=== PATIENT | male | born 1950 | race Caucasian/White ===

== ENCOUNTER 2017-07-11 11:34 | Observation (INO) ==
[2017-07-11] MEDS ORDERED: 0.9 % Sodium Chloride 1,000 ML IVC ONE (11:37)
--- NOTE | 2017-07-11 11:37 | Emergency Department Note ---
Disposition Clinical Impression: Dizziness Disposition: Admitted As Inpatient Condition: Good General Adult HPI - General Chief complaint: ED Dizziness Stated complaint: diziness Time Seen by Provider: 07/11/17 11:35 - Related Data Home Medications Medication Instructions Recorded Confirmed Atorvastatin Calcium [Lipitor] 20 mg PO QPM 07/11/17 07/11/17 Losartan [Cozaar] 25 mg PO DAILY 07/11/17 07/11/17 Metoprolol [Lopressor] 25 mg PO BID 07/11/17 07/11/17 Allergies Allergy/AdvReac Type Severity Reaction Status Date / Time No Known Allergies Allergy Verified 07/11/17 11:57 Course Vital Signs Temperature 98.4 F 07/11/17 11:36 Pulse Rate 69 07/11/17 11:36 Respiratory Rate 18 07/11/17 11:36 Blood Pressure 178/95 07/11/17 11:36 O2 Sat by Pulse Oximetry 98 07/11/17 11:36 Temperature 98.6 F 07/12/17 07:01 Pulse Rate 73 07/12/17 07:01 Respiratory Rate 16 07/12/17 07:01 Blood Pressure 150/81 07/12/17 07:01 O2 Sat by Pulse Oximetry 97 07/12/17 07:01 Oxygen Delivery Oxygen Delivery Room Air Medical Decision Making - Lab Data Result diagrams: 07/12/17 00:52 07/12/17 00:52 Lab Results 07/11/17 07/11/17 07/11/17 Range/Units 11:39 11:41 11:41 WBC 4.5 (4.3-11.1) K/mcL RBC 5.13 (4.19-5.50) M/mcL Hgb 15.3 (12.9-16.9) g/dL Hct 46.2 (37.5-50.1) % MCV 90.1 (83.0-100.0) fL MCH 29.8 (28.0-33.3) pg MCHC 33.1 (31.6-35.5) g/dL RDW 12.6 (11.5-14.5) % Plt Count 129 L (140-400) K/mcL MPV 10.9 (9.4-12.4) fL Immature Gran % 0.4 (0-4) % Seg Neutrophils % 52.5 % Lymphocytes % 35.4 % Monocytes % 7.0 % Eosinophils % 3.8 % Basophils % 0.9 % Neutrophils # 2.3 (1.6-8.9) K/mcL Lymphocytes # 1.6 (0.6-4.6) K/mcL Monocytes # 0.3 (0.0-1.3) K/mcL Eosinophils # 0.2 (0.0-0.6) K/mcL Basophils # 0.0 (0.0-0.2) K/mcL Sodium 140 (136-145) mEq/L Potassium 3.8 (3.5-4.5) mEq/L Chloride 106 (98-109) mEq/L Carbon Dioxide 27 (19-29) mEq/L BUN 13 (8-26) mg/dL Creatinine 1.02 (0.72-1.25) mg/dL Est GFR ( Amer) > 60 (> 60) Est GFR (Non-Af Amer) > 60 (> 60) BUN/Creatinine Ratio 13 (6-26) Glucose 128 H (70-99) mg/dL POC Glucose 122 H (58-89) Calculated Osmolality 292 (280-300) Calcium 9.2 (8.6-10.8) mg/dL Troponin I (0-0.03) ng/mL 07/11/17 Range/Units 11:41 WBC (4.3-11.1) K/mcL RBC (4.19-5.50) M/mcL Hgb (12.9-16.9) g/dL Hct (37.5-50.1) % MCV (83.0-100.0) fL MCH (28.0-33.3) pg MCHC (31.6-35.5) g/dL RDW (11.5-14.5) % Plt Count (140-400) K/mcL MPV (9.4-12.4) fL Immature Gran % (0-4) % Seg Neutrophils % % Lymphocytes % % Monocytes % % Eosinophils % % Basophils % % Neutrophils # (1.6-8.9) K/mcL Lymphocytes # (0.6-4.6) K/mcL Monocytes # (0.0-1.3) K/mcL Eosinophils # (0.0-0.6) K/mcL Basophils # (0.0-0.2) K/mcL Sodium (136-145) mEq/L Potassium (3.5-4.5) mEq/L Chloride (98-109) mEq/L Carbon Dioxide (19-29) mEq/L BUN (8-26) mg/dL Creatinine (0.72-1.25) mg/dL Est GFR ( Amer) (> 60) Est GFR (Non-Af Amer) (> 60) BUN/Creatinine Ratio (6-26) Glucose (70-99) mg/dL POC Glucose (58-89) Calculated Osmolality (280-300) Calcium (8.6-10.8) mg/dL Troponin I 0.00 (0-0.03) ng/mL Attestation Statement - Attestation Attestation: I examined this patient and my medical decision-making was reviewed with the Resident Physician. I agree with the documented findings, disposition and treatment plan as described except to the extent set forth below. [id number] time provided Patient arrives by EMS. He was reported to be pale, diaphoretic, clammy. He is clammy at the time of arrival but otherwise appears in no acute apparent distress. I evaluated patient upon arrival in conjunction with the resident physician Dr. Villela
--- NOTE | 2017-07-11 11:42 | Emergency Department Note ---
Disposition Clinical Impression: Dizziness Disposition: Admitted As Inpatient Condition: Good Dizziness HPI - General Chief Complaint: ED Dizziness Stated Complaint: diziness Time Seen by Provider: 07/11/17 11:35 Source: patient, EMS Mode of arrival: EMS Limitations: no limitations Nursing Notes Reviewed: Yes Vital Signs Reviewed: Yes - History of Present Illness HPI Narrative: Patient presents to the ED with the chief complaint of dizziness. Patient is presenting to the ED via EMS and was seen and evaluated immediately upon arrival. EMS reports that approximately one hour prior to arrival. The patient went out for a walk. On his walk he started to feel very dizzy and lightheaded and generally weak to the point where he actually had to crawl back home to call the squad. Upon arrival reportedly, the patient was pale, diaphoretic, clammy and dizzy. On arrival to the emergency department, the patient is in no acute distress, but does complain of feeling very dizzy and lightheaded. States he has a history of vertigo previously, but this feels different. He has also been nauseated with a few episodes of nonbloody, nonbilious vomiting. There is no chest pain, discomfort, heaviness, shortness of breath, fever, headache, changes in vision, abdominal pain, pain or swelling in his legs. He has no history of CVA. He does have history of coronary artery disease and one stent in 2007. He also takes medication for hypertension and hyperlipidemia. - Related Data Home Medications Medication Instructions Recorded Confirmed Atorvastatin Calcium [Lipitor] 20 mg PO QPM 07/11/17 07/11/17 Losartan [Cozaar] 25 mg PO DAILY 07/11/17 07/11/17 Metoprolol [Lopressor] 25 mg PO BID 07/11/17 07/11/17 Allergies Allergy/AdvReac Type Severity Reaction Status Date / Time No Known Allergies Allergy Verified 07/11/17 11:57 All systems ED: reviewed and negative except as stated. Constitutional: Reports: weakness (Generalized). Denies: fever Eyes: Denies: vision change Cardiovascular: Denies: chest pain Respiratory: Denies: dyspnea Gastrointestinal: Reports: nausea, vomiting. Denies: abdominal pain Musculoskeletal: Denies: back pain, neck pain Neurological: Reports: weakness, vertigo. Denies: headache Endocrine: Reports: fatigue Past Medical History - Past Medical History Attestation: Yes The following information was validated with the patient. Source: patient Physical Exam - General Limitations: no limitations General appearance: alert, in no apparent distress - Head Head exam: atraumatic, normocephalic, normal inspection - Eye Eye exam: Present: normal appearance, PERRL, EOMI - ENT ENT exam: normal exam, normal oropharynx, mucous membranes moist - Neck Neck exam: Present: normal inspection, full ROM, trachea midline - Chest Chest inspection: Present: normal inspection, symmetric chest wall rise - Respiratory Respiratory exam: Present: normal lung sounds bilaterally - Cardiovascular Cardiovascular exam: Present: regular rate, normal rhythm, normal heart sounds - Abdominal Exam Abdominal exam: Present: soft, Non-Tender. Absent: tenderness, distention, guarding, rebound, rigidity - Extremities Exam Extremities exam: Present: normal inspection, full ROM, normal capillary refill. Absent: tenderness, pedal edema - Expanded Lower Extremity Exam Hip/Pelvis exam: Present: pelvis stable - Neurological Exam Neurological exam: Present: alert, oriented X3, CN II-XII intact - Expanded Neurological Exam Patient oriented to: Present: person, place, time Speech: Present: fluid speech Cranial nerves: EOM function (II, III, IV, ): Normal, facial sensation (V): Normal, facial palsy (VII): Normal, spinal accessory function (XI): Normal, tongue deviation (XII): Normal Cerebellar function: finger to nose: Normal Motor strength - LUE: 5/5 Motor strength - RUE: 5/5 Motor strength - LLE: 5/5 Motor strength - RLE: 5/5 Upper motor neuron exam: kelley neglect: Absent bilaterally, pronator drift: Absent bilaterally Sensory exam upper extremity: light touch: Normal Sensory exam lower extremity: light touch: Normal Coma Scale Eye Opening: Spontaneous Coma Scale Motor Response: Obeys Commands Coma Scale Verbal Response: Oriented Coma Scale Total: 15 - Psychiatric Psychiatric exam: Present: normal affect, normal mood - Skin Skin exam: Present: warm, dry, intact, normal color Course Course Narrative: Patient presenting to the ED with dizziness. No chest pain or shortness of breath. Does have some ST segment changes in II, III, and F aVF. However, no STEMI. We will repeat his EKG and one hour. We will also CT his head. Patient will be admitted for further workup. Vital Signs Temperature 98.4 F 07/11/17 11:36 Pulse Rate 69 07/11/17 11:36 Respiratory Rate 18 07/11/17 11:36 Blood Pressure 178/95 07/11/17 11:36 O2 Sat by Pulse Oximetry 98 07/11/17 11:36 Temperature 97.9 F 07/11/17 14:04 Pulse Rate 69 07/11/17 16:11 Respiratory Rate 16 07/11/17 14:04 Blood Pressure 137/75 07/11/17 16:11 O2 Sat by Pulse Oximetry 95 07/11/17 14:04 Oxygen Delivery Oxygen Delivery Room Air Dizziness - Medical Records Medical records reviewed: Yes I reviewed the patient's medical records. - Lab Data Lab results reviewed: Yes I reviewed the patient's lab results. Result diagrams: 07/11/17 11:41 07/11/17 11:41 Lab Results 07/11/17 07/11/17 07/11/17 Range/Units 11:39 11:41 11:41 WBC 4.5 (4.3-11.1) K/mcL RBC 5.13 (4.19-5.50) M/mcL Hgb 15.3 (12.9-16.9) g/dL Hct 46.2 (37.5-50.1) % MCV 90.1 (83.0-100.0) fL MCH 29.8 (28.0-33.3) pg MCHC 33.1 (31.6-35.5) g/dL RDW 12.6 (11.5-14.5) % Plt Count 129 L (140-400) K/mcL MPV 10.9 (9.4-12.4) fL Immature Gran % 0.4 (0-4) % Seg Neutrophils % 52.5 % Lymphocytes % 35.4 % Monocytes % 7.0 % Eosinophils % 3.8 % Basophils % 0.9 % Neutrophils # 2.3 (1.6-8.9) K/mcL Lymphocytes # 1.6 (0.6-4.6) K/mcL Monocytes # 0.3 (0.0-1.3) K/mcL Eosinophils # 0.2 (0.0-0.6) K/mcL Basophils # 0.0 (0.0-0.2) K/mcL Sodium 140 (136-145) mEq/L Potassium 3.8 (3.5-4.5) mEq/L Chloride 106 (98-109) mEq/L Carbon Dioxide 27 (19-29) mEq/L BUN 13 (8-26) mg/dL Creatinine 1.02 (0.72-1.25) mg/dL Est GFR ( Amer) > 60 (> 60) Est GFR (Non-Af Amer) > 60 (> 60) BUN/Creatinine Ratio 13 (6-26) Glucose 128 H (70-99) mg/dL POC Glucose 122 H (58-89) Calculated Osmolality 292 (280-300) Calcium 9.2 (8.6-10.8) mg/dL Troponin I (0-0.03) ng/mL 07/11/17 Range/Units 11:41 WBC (4.3-11.1) K/mcL RBC (4.19-5.50) M/mcL Hgb (12.9-16.9) g/dL Hct (37.5-50.1) % MCV (83.0-100.0) fL MCH (28.0-33.3) pg MCHC (31.6-35.5) g/dL RDW (11.5-14.5) % Plt Count (140-400) K/mcL MPV (9.4-12.4) fL Immature Gran % (0-4) % Seg Neutrophils % % Lymphocytes % % Monocytes % % Eosinophils % % Basophils % % Neutrophils # (1.6-8.9) K/mcL Lymphocytes # (0.6-4.6) K/mcL Monocytes # (0.0-1.3) K/mcL Eosinophils # (0.0-0.6) K/mcL Basophils # (0.0-0.2) K/mcL Sodium (136-145) mEq/L Potassium (3.5-4.5) mEq/L Chloride (98-109) mEq/L Carbon Dioxide (19-29) mEq/L BUN (8-26) mg/dL Creatinine (0.72-1.25) mg/dL Est GFR ( Amer) (> 60) Est GFR (Non-Af Amer) (> 60) BUN/Creatinine Ratio (6-26) Glucose (70-99) mg/dL POC Glucose (58-89) Calculated Osmolality (280-300) Calcium (8.6-10.8) mg/dL Troponin I 0.00 (0-0.03) ng/mL - Radiology Data Radiology results reviewed: Yes I reviewed the patient's radiology results. - EKG Data EKG attestation: Yes I reviewed and interpreted this EKG. EKG results narrative: 11:37 AM Sinus rhythm, rate 66, UT interval 175, QRS 94, QTC 443, normal axis, patient does have some ST segment changes in leads 2, 3 and aVF. However, there is no elevation. We will recheck an EKG and one hour.
[2017-07-11 11:47] LABS: Basophils % 0.9 %; Eosinophils # 0.2 K/mcL (0.0-0.6); Eosinophils % 3.8 %; Hematocrit 46.2 % (37.5-50.1); Hemoglobin 15.3 g/dL (12.9-16.9); Immature Granulocytes % 0.4 % (0-4); Lymphocytes # 1.6 K/mcL (0.6-4.6); Lymphocytes % 35.4 %; Mean Corpuscular HGB Conc 33.1 g/dL (31.6-35.5); Mean Corpuscular Hemoglobin 29.8 pg (28.0-33.3); Mean Corpuscular Volume 90.1 fL (83.0-100.0); Mean Platelet Volume 10.9 fL (9.4-12.4); Monocytes # 0.3 K/mcL (0.0-1.3); Neutrophils # 2.3 K/mcL (1.6-8.9); Platelet Count 129 K/mcL (140-400); Red Blood Count 5.13 M/mcL (4.19-5.50); Red Cell Distribution Width 12.6 % (11.5-14.5); Segmented Neutrophils % 52.5 %
[2017-07-11 11:59] LABS: BUN/Creatinine Ratio 13 (6-26); Blood Urea Nitrogen 13 mg/dL (8-26); Calcium 9.2 mg/dL (8.6-10.8); Carbon Dioxide 27 mEq/L (19-29); Chloride 106 mEq/L (98-109); Glucose 128 mg/dL (70-99); Osmolality,Calculated 292 (280-300); Potassium 3.8 mEq/L (3.5-4.5); Sodium 140 mEq/L (136-145); eGFR For African Americans > 60 (> 60); eGFR For Non-African Americans > 60 (> 60)
[2017-07-11 13:54] LABS: Bilirubin,Urine Negative (Negative); Blood,Urine Negative (Negative); Clarity,Urine Clear (Clear); Color,Urine Yellow (Yellow); Glucose,Urine (UA) Normal (Normal); Ketones,Urine Negative (Negative); Leukocyte Esterase,Urine Negative (Negative); Nitrite,Urine Negative (Negative); Protein,Urine Negative (Neg-Trace); Specific Gravity,Urine 1.023 (1.010-1.025); Urobilinogen,Urine Normal (Normal)
--- NOTE | 2017-07-11 13:58 | Internal Med History&Physical ---
<Brando Aponte - Last Filed: 07/11/17 15:02> Date of Encounter: 07/11/17 Time of Encounter: 13:55 Assessment and Plan (1) Dizziness Current visit: Yes Status: Acute CT head negative for any acute abnormality. patient states she does have history of vertigo which has resolved on its own. EKG did not show any significant signs of ischemia first troponin negative CXR showed cardiomegaly with no acute process. Plan: lipid panel in am bilateral carotid duplex echocardiogram orthostatic vitals brain MRI- rule out cerebellar stroke. trend troponins repeat EKG tomorrow morning fall precautions telemetry if work up negative will likely need to be discharged with holter monitor and follow up with PCP. (2) Hypertension Current visit: Yes Status: Acute continue home meds. Qualifiers: Hypertension type: essential hypertension Qualified Code(s): I10 - Essential (primary) hypertension (3) Coronary artery disease Current visit: Yes Status: Acute patent had stent placed in 2007 and states he was on dual antiplatelet therapy afterwards with aspirin and plavix. Plan: continue ASA, statin, BB Qualifiers: Coronary Disease-Associated Artery/Lesion type: [place] artery [place] vs. transplanted heart: [place] heart Associated angina: without angina Qualified Code(s): I25.10 - Atherosclerotic heart disease of [place] coronary artery without angina pectoris (4) Hyperlipidemia Current visit: Yes Status: Acute will check lipid panel with am labs. continue home statin Qualifiers: Hyperlipidemia type: unspecified Qualified Code(s): E78.5 - Hyperlipidemia , unspecified (5) DVT prophylaxis Current visit: Yes Status: Acute heparin SQ Internal Medicine - H&P: HPI Chief complaint: dizziness Admitted From: Emergency Dept Plans for Post Hospital Care: Home History of present illness: Mr. Jones is a 66 year old male with PMHx of HTN, HLD, CAD presented to the ED via EMS with chief complaint of dizziness that started approximately one hour prior to arrival. Patient states that he was outside going for a walk earlier today when he started feeling extremely dizzy. he states that he felt as if his head was spinning. Patient states his head started to "wobble" from side to side. His dizziness lasted several hours and he states that it was still present after arriving to the ED but was less severe. He states he was pale and diaphoretic when this happened as well. He was clammy, sweaty, and nauseous with one episode of vomiting. he did not have any episodes of syncope. he denies headache, fever, chills, palpitations, chest pain. he admits to mild shortness of breath. he denies hematuria/hematochezia. he states this episode of dizziness happened 2-3 days ago the last time it happened. patient does have a history of vertigo that he was diagnosed with in 2016. he had a work up including Brain MRI at that time, which his states was negative. patient denies history of arrhythmias. he does have hx of CAD with stent placed in 2007 for which he was on dual antiplatelet therapy afterwards with aspirin and plavix. he is not a current smoker, drinks socially on weekends. he denies history of alcoholism or illicit drug use. Past Med Surg Social Fam HX - Past Medical History Medical history: hyperlipidemia, hypertension Psychiatric history: no psych history - Social History Smoking Status: Never smoker Smokeless Tobacco Status: No Alcohol use: occasionally Drug use: none - Family History Father Living Status: Hx Family Cardiac Disorders: Yes Internal Medicine - H&P: Meds Atorvastatin Calcium [Lipitor] 20 mg PO QPM 07/11/17 [History] Losartan [Cozaar] 25 mg PO DAILY 07/11/17 [History] Metoprolol [Lopressor] 25 mg PO BID 07/11/17 [History] 3 Allergy/AdvReac Type Severity Reaction Status Date / Time No Known Allergies Allergy Verified 07/11/17 11:57 All Systems PM: A 10-system review of systems was performed and is negative for pertinent findings except as documented above in the HPI. - Constitutional Constitutional: as per HPI - EENT Eyes: as per HPI Ears: as per HPI Nose, mouth and throat: as per HPI - Breasts Breasts: as per HPI - Cardiovascular Cardiovascular ROS IM: as per HPI - Respiratory Respiratory: as per HPI - Gastrointestinal Gastrointestinal: as per HPI - Genitourinary Genitourinary ROS male: as per HPI - Musculoskeletal Musculoskeletal ROS IM: as per HPI - Integumentary Integumentary IM: as per HPI - Neurological Neurological ROS: as per HPI - Psychiatric Psychiatric: as per HPI - Endocrine Endocrine IM: as per HPI - Hematologic/Lymphatic Hematologic/Lymphatic: as per HPI - Allergic/Immunologic Allergic/Immunologic: as per HPI - Constitutional Vitals: Temp Pulse Resp BP Pulse Ox 98.4 F 64 18 160/83 97 07/11/17 11:36 07/11/17 12:09 07/11/17 13:45 07/11/17 13:45 07/11/17 12:09 General appearance: Present: A&O X 3, pleasant, no acute distress, answers questions appropriately - Head Head exam: Present: atraumatic, normocephalic - Eye Eye exam: Present: PERRL Pupils: Present: normal accommodation, PERRL - ENT ENT exam: Present: mucous membranes moist - Neck Neck exam general surgery: Present: supple, trachea midline - Respiratory Respiratory exam: Present: CTAB - Cardiovascular Cardiovascular exam: Present: RRR, +S1, +S2. Absent: gallop, rubs, systolic murmur - GI/Abdominal GI/Abdominal exam: Present: normal bowel sounds, soft. Absent: distended, tenderness Additional comments: obese abdomen. - Extremities Exam Extremities exam: Absent: cyanotic, pedal edema - Neurological Exam Neurological exam: Present: alert, CN II-XII intact, oriented X3, no focal deficits, strengths equal and symetr throughout. Absent: pronater drift, facial droop, speech deficit Additional comments: patient was slow to walk but did not have any falls while walking. - Psychiatric Psychiatric exam: Present: normal affect, normal mood - Skin Skin exam: Present: intact. Absent: cyanosis, rash, urticaria Internal Med - H&P Results - Labs CBC & Chem 7: 07/11/17 11:41 07/11/17 11:41 <Robert Gasca - Last Filed: 07/11/17 16:20> Date of Encounter: 07/11/17 Internal Medicine - H&P: HPI History of present illness: Mr. Jones is a 66 year old male All Systems PM: A 10-system review of systems was performed and is negative for pertinent findings except as documented above in the HPI. - Constitutional Vitals: Temp Pulse Resp BP Pulse Ox 97.9 F 57 16 167/97 95 07/11/17 14:04 07/11/17 14:04 07/11/17 14:04 07/11/17 14:04 07/11/17 14:04 Internal Med - H&P Results - Labs CBC & Chem 7: 07/11/17 11:41 07/11/17 11:41 Labs: Urine 07/11/17 Range/Units 13:43 Urine Color Yellow (Yellow) Urine Clarity Clear (Clear) Urine pH 6.0 (5.0-8.0) pH Units Ur Specific [place] 1.023 (1.010-1.025) Urine Protein Negative (Neg-Trace) mg/dL Urine Glucose (UA) Normal (Normal) mg/dL - Attending Attestation I have independently seen and examined this patient on 07/11/17 and discussed plan of care with the patient and the resident 66 M with hx of VErtigo, HTN, HLD, CAD s/p stent in 2007 who had exertional dizziness associated with nausea and vomiting, shortness of breath and diaphoresis. He did not have chest pain. He continues to have dizziness during the time of evaluation Physical exam: VSS. Not in distress. Speaks full sentences. No facial assymetry. gait is normal without ataxia. Cerebellar signs are unremarkable, however, patient has past pointing, he has no nystagmus. His motor strength and sensation is normal. he has no carotid bruits. Chest is CTAB. Heart sounds S1, S 2only, no murmurs, no gallops, no rubs, Abdomen is soft and benigng. No pedal edema labs and Imaging reviewed: Head CT unremarkable, CXR with cardiomegaly, EKG with flat T waves in lead II. CBC and chem WNL A/P :Dizziness: R/O Anginal equivalent, r/o CVA. Obtain full work up. ECHO/Brain MRI /carotid USS. Give ASA, continue patient's home meds Uncontrolled HTN: Possibly chronic. Resume home meds, titrate prn Rest of details as in resident physician's documentation
[2017-07-11] MEDS ORDERED: Naloxone 0.4 MG/ML INJ IVP PRN (14:56)
[2017-07-11] MEDS ORDERED: Ondansetron 4 MG/2 ML VIAL IVP PRN (14:56)
[2017-07-11] MEDS ORDERED: Acetaminophen 325 MG TABLET PO PRN (14:56)
[2017-07-11] MEDS: Aspirin 81 MG TAB.CHEW PO SCH (15:32)
--- NOTE | 2017-07-11 19:11 | Electrocardiograph Report ---
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
[2017-07-12 01:36] LABS: Hematocrit 42.1 % (37.5-50.1); Hemoglobin 14.1 g/dL (12.9-16.9); Immature Platelets 7.3 % (1.1-6.1); Mean Corpuscular HGB Conc 33.5 g/dL (31.6-35.5); Mean Corpuscular Volume 89.6 fL (83.0-100.0); Mean Platelet Volume 11.5 fL (9.4-12.4); Red Blood Count 4.7 M/mcL (4.19-5.50); Red Cell Distribution Width 12.6 % (11.5-14.5)
[2017-07-12 01:52] LABS: Chol/HDL Ratio 3.7 (0-4.9)
[2017-07-12 01:53] LABS: BUN/Creatinine Ratio 13 (6-26); Blood Urea Nitrogen 12 mg/dL (8-26); Calcium 8.8 mg/dL (8.6-10.8); Carbon Dioxide 23 mEq/L (19-29); Chloride 109 mEq/L (98-109); Glucose 112 mg/dL (70-99); Osmolality,Calculated 291 (280-300); Potassium 3.8 mEq/L (3.5-4.5); Sodium 140 mEq/L (136-145); eGFR For African Americans > 60 (> 60); eGFR For Non-African Americans > 60 (> 60)
[2017-07-12 07:05] VITALS: BP 150/81
--- NOTE | 2017-07-12 07:20 | Carotid Imaging Report ---
Carotid Duplex Patient Name:Thang Jones Order Number:[id number] Procedure Date:07/11/2017 Date:1950ge:66 yrs Gender:Male Lt BP:160 / 83 mmHg Rt.BP:167 / 97 mmHgHeart Rate: Location:[facility] Room #: [facility] Supervisor:Belkis Sarabia RDCS Referring MD:DO Carlos Fairbanks MD:Anuj Pedraza MD Primary Indications:dizziness Risk Factors Yes/No Hypertension Yes Hypercholesterolemia Yes Impressions: The bilateral carotid arteries are normal throughout. Recommendations: After imaging the patient returned to their room. Findings Carotid Duplex: Magdaleno scale imaging combined with Doppler flow analysis suggests normal findings bilaterally. Right: The right proximal common carotid artery has a PSV of 105 cm/s and a EDV of 17 cm/s. The right mid common carotid artery has a PSV of 97 cm/s and a EDV of 16 cm/s. The right distal common carotid artery has a PSV of 90 cm/s and a EDV of 18 cm/s. The right bifurcation has a PSV of 80 cm/s and a EDV of 17 cm/s. The right proximal internal carotid artery has a PSV of 63 cm/s and a EDV of 15 cm/s. The right mid internal carotid artery has a PSV of 72 cm/s and a EDV of 22 cm/s. The right distal internal carotid artery has a PSV of 76 cm/s and a EDV of 19 cm/s. The right eca has a PSV of 110 cm/s and a EDV of 12 cm/s. The right vertebral artery has a PSV of 41 cm/s and a EDV of 11 cm/s. Left: The left proximal common carotid artery has a PSV of 123 cm/s and a EDV of 20 cm/s. The left mid common carotid artery has a PSV of 99 cm/s and a EDV of 15 cm/s. The left distal common carotid artery has a PSV of 103 cm/s and a EDV of 17 cm/s. The left bifurcation has a PSV of 89 cm/s and a EDV of 20 cm/s. The left proximal internal carotid artery has a PSV of 76 cm/s and a EDV of 20 cm/s. The left mid internal carotid artery has a PSV of 63 cm/s and a EDV of 19 cm/s. The left distal internal carotid artery has a PSV of 66 cm/s and a EDV of 21 cm/s. The left eca has a PSV of 97 cm/s and a EDV of 13 cm/s. The left vertebral artery has a PSV of 39 cm/s and a EDV of 9 cm/s. Prior Study: No prior study available for comparison. Carotid Results Right PSV EDV Assessment Proximal CCA 105 17 Normal Mid CCA 97 16 Normal Distal CCA 90 18 Normal Bifurcation 80 17 Normal Proximal ICA 63 15 Normal Mid ICA 72 22 Normal Distal ICA 76 19 Normal ECA 110 12 Normal Vertebral Artery 41 11 Normal Left PSV EDV Assessment Proximal CCA 123 20 Normal Mid CCA 99 15 Normal Distal CCA 103 17 Normal Bifurcation 89 20 Normal Proximal ICA 76 20 Normal Mid ICA 63 19 Normal Distal ICA 66 21 Normal ECA 97 13 Normal Vertebral Artery 39 9 Normal Ratio's Right ICA/CCA Ratio: 0.78 ICA/CCA Values: 76/97 Left ICA/CCA Ratio: 0.77 ICA/CCA Values: 76/99 Updated by Anuj Pedraza MD on 07/12/2017 7:12:32 AM electronically signed on 07/12/2017 7:12:51 AM with status of Final
[2017-07-12] MEDS: Aspirin 81 MG TAB.CHEW PO SCH (09:30)
--- NOTE | 2017-07-12 10:08 | Discharge Summary ---
<Fariha Rider - Last Filed: 07/12/17 10:02> Date of Encounter: 07/12/17 Time of Encounter: 10:03 - Discharge Medications Prescriptions: Meclizine [Antivert] 25 mg PO BID PRN 7 Days #14 tablet PRN Reason: Dizziness Home Medications: Atorvastatin Calcium [Lipitor] 20 mg PO QPM 07/11/17 [History] Losartan [Cozaar] 25 mg PO DAILY 07/11/17 [History] Metoprolol [Lopressor] 25 mg PO BID 07/11/17 [History] Meclizine [Antivert] 25 mg PO BID PRN 7 Days #14 tablet 07/12/17 [Rx] Allergies/Adverse Reactions: 3 Allergy/AdvReac Type Severity Reaction Status Date / Time No Known Allergies Allergy Verified 07/11/17 11:57 Procedures/tests Complete & Pending: Procedures Performed prior 72 hours Category Date Time Status MR head/brain wo con [MR] Routine MRI 07/11/17 14:53 Completed EKG [ECG 12 lead ECG] [ECG] Routine Y 07/12/17 08:00 Completed EV carotid duplex imaging BI Routine Y 07/11/17 14:52 Completed EV echocardiogram Routine Y 07/11/17 14:51 Completed Date of admission: 07/11/17 13:39 Primary care physician: [facility] Discharging clinician: Robert Gasca - Patient Status Disposition: Home, Self-Care Condition: Good Functional capacity at discharge: independent ambulation Overall status at discharge: patient is back to baseline - Discharge Instructions Instructions: Meclizine (By mouth), Coronary Artery Disease (DC), Heart Healthy Diet (DC), Syncope (DC), Chronic Hypertension (DC) Follow [facility]: [facility] [Primary Care Provider] - 07/19/17 11:15 am Additional Instructions: Continue to wear event monitor for 2 weeks and follow up with your PCP Take meclizine as needed for dizziness return to the hospital if you should worsen, pass out, chest pain, shortness of breath - Diet and Activity Activity: resume usual activities as tolerated Diet: regular diet Hospital course: Mr. Jones is a 66 year old male - Time Spent with Patient Total time spent providing and/or coordinating discharge services: - Constitutional Vitals: Temp Pulse Resp BP Pulse Ox 98.6 F 73 16 150/81 97 07/12/17 07:01 07/12/17 07:01 07/12/17 07:01 07/12/17 07:01 07/12/17 07:01 General appearance: Present: A&O X 3, pleasant, no acute distress, answers questions appropriately <Robert Gasca T - Last Filed: 07/12/17 13:59> Date of Encounter: 07/12/17 Procedures/tests Complete & Pending: Procedures Performed prior 72 hours Category Date Time Status MR head/brain wo con [MR] Routine MRI 07/11/17 14:53 Completed ECG 12 lead ECG [ECG] Routine Y 07/11/17 16:00 Completed ECG event monitor 2 weeks [ECG] Routine Y 07/12/17 10:26 Completed EKG [ECG 12 lead ECG] [ECG] Routine Y 07/12/17 08:00 Completed EV carotid duplex imaging BI Routine Y 07/11/17 14:52 Completed EV echocardiogram Routine Y 07/11/17 14:51 Completed Date of admission: 07/11/17 13:39 Primary care physician: PCP [facility] Hospital course: Mr. Jones is a 66 year old male - Time Spent with Patient Total time spent providing and/or coordinating discharge services: - Constitutional Vitals: Temp Pulse Resp BP Pulse Ox 98.6 F 73 16 150/81 97 07/12/17 07:01 07/12/17 07:01 07/12/17 07:01 07/12/17 07:01 07/12/17 07:01 - Attending Attestation I have independently seen and examined this patient on 07/12/17 and discussed plan of care with the patient and the resident 66 M with hx of Vertigo, HTN, HLD, CAD s/p stent in 2007 who was admitted to observation on 07/11 following an episode of dizziness associated with nasuea/ vomiting/diaphoresis Work up including ECHO/Carotid doppler/brain MRI has been unremarkable He has no events on tele He is seen this morning and denies any more episodes of Vertigo, but chronically has tinnitus Physical exam: VSS. Not in distress. Speaks full sentences. No facial asymmetry. gait is normal without ataxia. Cerebellar signs are unremarkable, however, patient has past pointing, he has no nystagmus. His motor strength and sensation is normal. he has no carotid bruits. Chest is CTAB. Heart sounds S1, S 2only, no murmurs, no gallops, no rubs, Abdomen is soft and benign. No pedal edema labs and Imaging reviewed: Head CT unremarkable, Carotid Doppler shows no obstruction, ECHO is WNL, normal EF, no WMA, Brain MRI is unremarkable. Plan Safe to discharge patient with cardiac monitoring , home meds. encouraged to comply with medications and follow up with PCP on ENT referral, meclizine prn Verbalized understanding Rest of details as in resident physician's documentation
--- NOTE | 2017-07-13 08:10 | Electrocardiograph Report ---
[place] [id number] Test Date: 2017-07-11 Pat Name: Thang Jones Department: 103 Room: 3B Gender: Retail Office Manager: : 1950 Requested By: Rajiv Villela Order Number: [id number] Reading MD: Beny Hussein MD Measurements Intervals [place] Rate: 63 P: 11 NV: 174 QRS: 32 QRSD: 90 T: 32 QT: 434 QTc: 441 Interpretive Statements SINUS RHYTHM Electronically Signed On 07-13-2017 8:09:28 EDT by Beny Hussein MD
--- NOTE | 2017-07-13 08:22 | Electrocardiograph Report ---
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
== END 2017-07-12 12:06 | disposition home or self-care (01) ==
LOC: 3BNU 11:34 → EMEROO 11:34 → SUATTDRO 13:39 → 3BNU 13:58
PROVIDERS: ADMIT Internal Medicine; ATTEND Internal Medicine